=== PATIENT | female | born 1970 | race Caucasian/White ===

== ENCOUNTER 2016-10-25 07:29 | Day surgery (SDC) | payer OTHER, BC ==
[~2016-10-25 07:29] MED LIST: Lactated Ringers 1,000 ML IV SCH; Lidocaine 1%/Sod Bicarbonate in NS 8.4% 1 ML Syringe IV PRN; Sodium Chloride 0.9% 10 ML Syringe FLUSH PRN
[2016-10-25] MEDS ORDERED: Scopolamine 1.5 MG Transdermal Patch TRDERM ONE (07:49)
--- NOTE | 2016-10-25 07:55 | PCM.PREANE ---
Preanesthetic Assessment - Anesthesia/Transfusion/Family Hx Anesthesia History: Prior Anesthesia Reaction Type of Anesthesia Reaction: Excessive Nausea/Vomiting Family History of Anesthesia Reaction: No Transfusion History: No Prior Transfusion(s) - Review of Systems General: No Symptoms Pulmonary: Cough (allergy cough) Cardiovascular: No Symptoms Gastrointestinal: Abdominal pain (cyst) Neurological: No Symptoms Other: Reports: None - Physical Assessment NPO Status Date: 10/24/16 (sip of water this am with pill) NPO Status Time: 21:30 Pulse: 84 O2 Sat by Pulse Oximetry: 95 Respiratory Rate: 16 Blood Pressure: 134/95 Temperature: 98.5 F Height: 5 ft 6 in Weight: 77.111 kg ASA Class: 2 Mental Status: Alert & Oriented x3 Airway Class: Mallampati = 2 Dentition: Reports: Normal Dentition Thyro-Mental Finger Breadths: 3 Mouth Opening Finger Breadths: 2 ROM/Head Extension: Full Lungs: Clear to auscultation, Normal respiratory effort Cardiovascular: Regular Rate, Regular Rhythm - Lab Values: Laboratory Last Values Blood Type A NEGATIVE 10/24/16 12:34 Gel Antibody Screen Negative 10/24/16 12:34 - Allergies Allergies/Adverse Reactions: Allergies Allergy/AdvReac Type Severity Reaction Status Date / Time Sulfa (Sulfonamide Allergy Anaphylactic Verified 10/24/16 16:43 Antibiotics) Shock - Blood Blood Available: No - Acknowledgements Anesthesia Type Planned: General Anesthesia Pt an Appropriate Candidate for the Planned Anesthesia: Yes Alternatives and Risks of Anesthesia Discussed w Pt/Guardian: Yes Pt/Guardian Understands and Agrees with Anesthesia Plan: Yes PreAnesthesia Questionnaire HEENT History: Reports: Allergic Rhinitis Cardiovascular History: Reports: Blood Clots/VTE/DVT, High Cholesterol, Hypertension Respiratory History: Reports: None Gastrointestinal History: Reports: None Genitourinary History: Reports: Other (See Below) Other Genitourinary History: stress urinary incontinence Other OB/BYN History: abnormal vaginal bleeding, menorrhagia, metrohagia, irregular menses Musculoskeletal History: Reports: Other (See Below) Other Musculoskeletal History: foot surgery Neurological History: Reports: Migraines Psychiatric History: Reports: None Endocrine/Metabolic History: Reports: None Hematologic History: Reports: None Immunologic History: Reports: None Oncologic (Cancer) History: Reports: None Dermatologic History: Reports: None - Past Surgical History Head Surgeries/Procedures: Reports: None HEENT Surgical History: Reports: Tonsillectomy Female Surgical History: Reports: Breast Reduction, Section, Hysterectomy, Tubal Ligation, Other (See Below) Other Female Surgeries/Procedures: mid urethral sling procedure Musculoskeletal Surgical History: Reports: Other (See Below) (foot surgery) - SUBSTANCE USE Smoking Status *Q: Never Smoker Tobacco Use Within Last Twelve Months: No (1) Second Hand Smoke Exposure: No Days Per Week of Alcohol Use: 1 Number of Drinks Per Day: 1 Total Drinks Per Week: 1 Recreational Drug Use History: No - HOME MEDS Home Medications: Home Meds Aspirin/Acetaminophen/Caffeine [Migraine Relief Caplet] 1 tab PO ASDIRECTED PRN 10/24/16 [History] Butalb/Acetaminophen/Caffeine [Ddkgeb-Lsxukfzc-Ebes 50-300-40] 1 cap PO ASDIRECTED PRN 10/24/16 [History] Losartan Potassium [Losartan Potassium] 25 mg PO DAILY 10/24/16 [History] atorvaSTATin Calcium [Atorvastatin Calcium] 10 mg PO DAILY 10/24/16 [History] traMADol HCl [Tramadol HCl] 50 mg PO TID PRN 10/24/16 [History] - CURRENT (IN HOUSE) MEDS Current Meds: Current Medications Lactated Ringer's (Ringers, Lactated) 1,000 mls @ 125 mls/hr IV ASDIRECTED PETER Stop: 10/25/16 23:59 Lidocaine/Sodium Bicarbonate (Buffered Lidocaine 1% In Ns 8.4%) 0.25 ml IV ONETIME PRN PRN Reason: Prior to IV Start Stop: 10/25/16 23:59 Scopolamine (Transderm-Scop) 1.5 mg TRDERM ONETIME ONE Stop: 10/25/16 07:50 Sodium Chloride (Saline Flush) 10 ml FLUSH ASDIRECTED PRN PRN Reason: Keep Vein Open Stop: 10/25/16 23:59
[2016-10-25] MEDS ORDERED: Bupivacaine 0.5% 30 ML SDV ONE (08:00)
[2016-10-25] MEDS ORDERED: Ondansetron 4 MG/2 ML SDV ONE (08:55)
[2016-10-25] MEDS ORDERED: Rocuronium 50 MG/5 ML Vial ONE (08:55)
[2016-10-25] MEDS ORDERED: Propofol 200 MG/20 ML SDV ONE (08:56)
[2016-10-25] MEDS ORDERED: Lidocaine 1% 4 ML ONE (08:56)
[2016-10-25] MEDS ORDERED: fentaNYL 250 MCG/5 ML SDV ONE (08:56)
[2016-10-25] MEDS ORDERED: Midazolam 1 MG/ML 2 ML SDV ONE (08:56)
[2016-10-25] MEDS ORDERED: diphenhydrAMINE 50 MG/ML SDV ONE (09:07)
[2016-10-25] MEDS ORDERED: Dexamethasone 4 MG/ML 5 ML MDV ONE (09:07)
[2016-10-25] MEDS ORDERED: Ibuprofen 600 MG Tab PO PRN (09:58)
[2016-10-25] MEDS ORDERED: Acetaminophen/oxyCODONE 325-5 MG Tab PO PRN (09:58)
[2016-10-25] MEDS ORDERED: Ketorolac 30 MG/ML SDV ONE (10:04)
[2016-10-25] MEDS ORDERED: Neostigmine Methylsulfate 1 MG/ML 5 ML Syringe ONE (10:04)
--- NOTE | 2016-10-25 10:08 | PCM.OPNOTE ---
- General Post-Op/Procedure Note Date of Surgery/Procedure: 10/25/16 Operative Procedure(s): laparoscopy, right oophorectomy, lysis of pelvic adhesions Findings: right ovary was mildly enlarged, had multiple small cysts present, 1 small area tears to be hemorrhagic-possibly consistent with endometriosis, pelvic adhesions involving left and right ovary. Patient is status post hysterectomy. Appendix appeared normal as did the right liver edge. Pre Op Diagnosis: 1. Pelvic pain. 2. Right ovarian complex cyst Post-Op Diagnosis: Same, pelvic adhesions Anesthesia Technique: General ET tube Other Anesthesia Type: local-0.5% Marcaine-10 cc total Primary Surgeon: Travon Marsh Secondary Surgeon: Juventino Shaffer Anesthesia Provider: Ritesh Arreguin Pathology: right ovary Fluid Replacement, Intraop: 1,200 Output, Urine Amount: 175 EBL in mLs: 5 Drain/Tube Comments:: indwelling bladder catheter during surgery only Complications: None Condition: Good Free Text/Narrative:: surgeon duration: 27 minutes Complications: None Procedure: The patient is taken to the operating room and placed in a supine position on the operating table. She had sequential compression stockings placed for DVT prophylaxis and received 2 g of Ancef IV for infection prophylaxis.General endotracheal anesthesia was administered. After adequate constriction anesthesia patient was placed in the dorsal lithotomy position, prepped and draped in usual fashion.a sponge stick was placed in the vagina for manipulation purposes and a Reyes catheter was inserted into the vagina. Infraumbilical incision site and superpubic side and initially a right lateral side were developed. All 3 sites were injected with approximately 3 cc of Marcaine 0.5% Verres needle was placed through the 5 mm infraumbilical surgical site and pneumoperitoneum was and 3 L of CO2. Under direct visualization CO2 port sites were placed. The right ovary was found to be as described above. It was elevated and using the enterocele cautery system the mesovarium was crossclamped, cauterized and developed. The right ovary been totally removed. There were some adhesions of the left ovary and these were taken down with the same entocele device. The right ovary was then placed in an Endo Catch bag and was drawn up through the suprapubic port. The fascia was enlarged minimally to allow for passage of the ovary. Fascial layer was closed running she short segment of #1 Vicryl. The suprapubic site was closed with a short running suture of 4-0 Monocryl. 2 sites as simple interrupted suture of 4-0 Monocryl. All 3 incisions were closed eventually with Dermabond skin glue. Sponge instrument needle counts correct at this point. Patient was returned to supine position and awakened from general endotracheal anesthesia. She then of the Reyes catheter and sponge stick were removed prior to the end of the procedure. Condition.
--- NOTE | 2016-10-25 10:13 | PCM.POSTAN ---
POST ANESTHESIA ASSESSMENT - MENTAL STATUS Mental Status: alert, oriented - VITAL SIGNS Pulse Rate: 63 SaO2: 93 Resp Rate: 12 Blood Pressure: 111/78 Temperature: 36.2 C - RESPIRATORY Respiratory Status: respiratory rate WNL, airway patent, O2 saturation stable - CARDIOVASCULAR CV Status: pulse rate WNL, blood pressure stable - GASTROINTESTINAL GI Status: no symptoms - PAIN Pain Score: 0 - POST OP HYDRATION Hydration Status: adequate & stable
[2016-10-25] MEDS ORDERED: diphenhydrAMINE 50 MG/ML SDV IVPUSH PRN (10:14)
[2016-10-25] MEDS ORDERED: Meperidine PF 50 MG/ML Syringe IVPUSH PRN (10:14)
[2016-10-25] MEDS ORDERED: Ondansetron 4 MG/2 ML SDV IVPUSH PRN (10:14)
[2016-10-25] MEDS ORDERED: fentaNYL 100 MCG/2 ML SDV IVPUSH PRN (11:20)
[2016-10-25] MEDS ORDERED: HYDROmorphone 0.5 MG/0.5 ML Syringe IVPUSH PRN (11:20)
--- NOTE | 2016-10-25 12:39 | PCM48HPAN ---
Post Anesthesia Note - EVALUATION WITHIN 48HRS OF ANESTHETIC Vital Signs in Normal Range: Yes Patient Participated in Evaluation: Yes Respiratory Function Stable: Yes Airway Patent: Yes Cardiovascular Function Stable: Yes Hydration Status Stable: Yes Pain Control Satisfactory: Yes Nausea and Vomiting Control Satisfactory: Yes Mental Status Recovered: Yes
[2016-10-25 13:05] VITALS: BP 128/83
== END 2016-10-25 12:55 | disposition home or self-care (01) ==
LOC: JD.SDS 07:29
PROVIDERS: ATTEND Obstetrics & Gynecology
DX: D27.0 Benign neoplasm of right ovary (principal); I10 Essential (primary) hypertension; E78.5 Hyperlipidemia, unspecified; N83.11 Corpus luteum cyst of right ovary; G43.909 Migraine, unspecified, not intractable, without status migrainosus; Z88.2 Allergy status to sulfonamides; Z79.899 Other long term (current) drug therapy; Z87.42 Personal history of other diseases of the female genital tract; Z90.710 Acquired absence of both cervix and uterus; Z98.890 Other specified postprocedural states; Z98.51 Tubal ligation status
CPT/HCPCS: 36415; 58661; 86850; 86900; 86901; 88305; A9270; J1100; J1200; J1885; J2250; J2405; J2710; J3010; J7120; 00840; J2704

== ENCOUNTER 2021-10-22 13:00 | Emergency (ER) | payer OTHER ==
[2021-10-22] MEDS ORDERED: Sodium Chloride 0.9% 10 ML Syringe FLUSH PRN (13:23)
[2021-10-22 15:04] VITALS: BP 142/93; PULSE 75
== END 2021-10-22 15:04 | disposition home or self-care (01) ==
LOC: JD.ED 13:00
DX: I10 Essential (primary) hypertension (principal); E78.00 Pure hypercholesterolemia, unspecified; Z88.2 Allergy status to sulfonamides; Z88.8 Allergy status to other drugs, medicaments and biological substances; Z79.899 Other long term (current) drug therapy
CPT/HCPCS: 36415; 71046; 80053; 83735; 83880; 84484; 85025; 85610; 85730; 93005; 99284; J3490; 93010